=== PATIENT | female | born 1955 | race Caucasian/White ===

== ENCOUNTER 2017-07-12 07:33 | Outpatient (CLI) | payer OTHER ==
[~2017-07-12 07:33] MED LIST: FLOR250 PO; NITR100C7 PO
[2017-07-12 09:35] LABS: BASOPHILS # (AUTO) 0.2 K/uL (0.00-0.22); BASOPHILS % (AUTO) 3.3 % (0.0-2.0); EOSINOPHILS # (AUTO) 0.2 K/uL (0-0.4); EOSINOPHILS % (AUTO) 3.6 % (0.0-4.0); HEMATOCRIT 37.8 % (36-48); HEMOGLOBIN 12.4 g/dL (12.0-16.0); LYMPHOCYTES % (AUTO) 18.7 % (20.5-51.1); MEAN CORPUSCULAR HEMOGLOBIN 27 pg (27-31); MEAN CORPUSCULAR HGB CONC 33 g/dL (33-37); MEAN CORPUSCULAR VOLUME 82 fL (80-94); MONOCYTES # (AUTO) 0.4 K/uL (0.8-1.0); MONOCYTES % (AUTO) 6.4 % (1.7-9.3); NEUTROPHILS # (AUTO) 3.8 K/uL (1.8-7.7); PLATELET COUNT (AUTO) 229 K/uL (140-450); RED CELL DISTRIBUTION WIDTH 13.2 % (11.6-13.7); WHITE BLOOD COUNT (AUTO) 5.6 K/uL (4.8-10.8)
[2017-07-12 10:01] LABS: ALBUMIN 3.4 g/dL (3.4-5.0); CARBON DIOXIDE 31.3 mmol/L (21-32); CHOL/HDL RATIO 4.7 (1-4.5); CREATININE 0.9 mg/dL (0.6-1.3); POTASSIUM 4.3 mmol/L (3.5-5.1); THYROID STIMULATING HORMONE 3.46 uIU/mL (0.34-3.74); TOTAL BILIRUBIN 0.4 mg/dL (0.0-1.0)
== END 2017-07-12 20:25 | disposition home or self-care (01) ==
LOC: MLB 07:33 → EDBD 07:33 → MLB 20:25
PROVIDERS: ATTEND Family Medicine
DX: I10 Essential (primary) hypertension (principal); E78.5 Hyperlipidemia, unspecified
CPT/HCPCS: 36415; 80053; 83036; 84443; 85025

== ENCOUNTER 2019-01-02 15:43 | Outpatient (CLI) | payer OTHER | END 2019-01-02 20:35 | disposition home or self-care (01) | LOC: MRD 15:43 | PROVIDERS: ATTEND Family Medicine | DX: R60.0 Localized edema (principal) | CPT/HCPCS: 93971; Q0092 ==

== ENCOUNTER 2019-01-10 07:05 | Outpatient (CLI) | payer OTHER ==
[2019-01-10 08:14] LABS: ALBUMIN 3.8 g/dL (3.4-5.0); ANION GAP 9.7 (8-16); CARBON DIOXIDE 30.9 mmol/L (21-32); CHOL/HDL RATIO 3.1 (1-4.5); CREATININE 0.9 mg/dL (0.6-1.3); POTASSIUM 3.6 mmol/L (3.5-5.1); THYROID STIMULATING HORMONE 2.78 uIU/mL (0.34-3.74); TOTAL BILIRUBIN 0.5 mg/dL (0.0-1.0)
[2019-01-10 08:32] LABS: BASOPHILS # (AUTO) 0.1 K/uL (0.00-0.22); EOSINOPHILS # (AUTO) 0.2 K/uL (0-0.4); EOSINOPHILS % (AUTO) 3.9 % (0.0-4.0); HEMATOCRIT 38.5 % (36-48); HEMOGLOBIN 12.9 g/dL (12.0-16.0); LYMPHOCYTES # (AUTO) 1.3 K/uL (2.5-16.5); LYMPHOCYTES % (AUTO) 23.6 % (20.5-51.1); MEAN CORPUSCULAR HEMOGLOBIN 29 pg (27-31); MEAN CORPUSCULAR HGB CONC 34 g/dL (33-37); MEAN CORPUSCULAR VOLUME 84.9 fL (80-94); MONOCYTES # (AUTO) 0.4 K/uL (0.8-1.0); MONOCYTES % (AUTO) 7.1 % (1.7-9.3); NEUTROPHILS # (AUTO) 3.6 K/uL (1.8-7.7); NEUTROPHILS % (AUTO) 64.4 % (42.2-75.2); PLATELET COUNT (AUTO) 230 K/uL (140-450); RED BLOOD CELL COUNT(AUTO) 4.53 MIL/uL (4.20-5.40); RED CELL DISTRIBUTION WIDTH 13.5 % (11.6-13.7); WHITE BLOOD COUNT (AUTO) 5.5 K/uL (4.8-10.8)
== END 2019-01-10 20:11 | disposition home or self-care (01) ==
LOC: MLB 07:05
PROVIDERS: ATTEND Family Medicine
DX: E78.5 Hyperlipidemia, unspecified (principal); I10 Essential (primary) hypertension
CPT/HCPCS: 36415; 80053; 82272; 84443; 85025

== ENCOUNTER 2019-04-12 15:39 | Emergency (ER) | payer OTHER ==
[~2019-04-12] VITALS: Ht 160 cm; Wt 89.4 kg
[2019-04-12 15:42] VITALS: BP 114/66
[2019-04-12 16:23] VITALS: BP 114/59
== END 2019-04-12 16:24 | disposition home or self-care (01) ==
LOC: MED 15:39
DX: S60.032A Contusion of left middle finger without damage to nail, initial encounter (principal); I10 Essential (primary) hypertension; J45.909 Unspecified asthma, uncomplicated; Z79.899 Other long term (current) drug therapy; Z79.2 Long term (current) use of antibiotics; Z88.1 Allergy status to other antibiotic agents; W23.0XXA Caught, crushed, jammed, or pinched between moving objects, initial encounter; Y93.89 Activity, other specified; Y92.89 Other specified places as the place of occurrence of the external cause; Y99.8 Other external cause status
CPT/HCPCS: 73140; 99283

== ENCOUNTER 2019-08-15 15:13 | Outpatient (CLI) | payer OTHER ==
[2019-08-15 15:43] LABS: BASOPHILS # (AUTO) 0.1 K/uL (0.00-0.22); BASOPHILS % (AUTO) 1.1 % (0.0-2.0); EOSINOPHILS # (AUTO) 0.2 K/uL (0-0.4); EOSINOPHILS % (AUTO) 3.8 % (0.0-4.0); HEMATOCRIT 37.9 % (36-48); HEMOGLOBIN 12.4 g/dL (12.0-16.0); LYMPHOCYTES # (AUTO) 1.3 K/uL (2.5-16.5); MEAN CORPUSCULAR HEMOGLOBIN 27 pg (27-31); MEAN CORPUSCULAR HGB CONC 33 g/dL (33-37); MEAN CORPUSCULAR VOLUME 83.9 fL (80-94); MONOCYTES # (AUTO) 0.3 K/uL (0.8-1.0); MONOCYTES % (AUTO) 6.5 % (1.7-9.3); NEUTROPHILS # (AUTO) 2.9 K/uL (1.8-7.7); NEUTROPHILS % (AUTO) 61.6 % (42.2-75.2); PLATELET COUNT (AUTO) 232 K/uL (140-450); RED BLOOD CELL COUNT(AUTO) 4.52 MIL/uL (4.20-5.40); RED CELL DISTRIBUTION WIDTH 13.7 % (11.6-13.7); WHITE BLOOD COUNT (AUTO) 4.8 K/uL (4.8-10.8)
[2019-08-15 16:21] LABS: ALBUMIN 3.7 g/dL (3.4-5.0); ANION GAP 12.2 (8-16); CARBON DIOXIDE 28.9 mmol/L (21-32); CREATININE 0.9 mg/dL (0.6-1.3); FREE T4 (FREE THYROXINE) 0.98 ng/dL (0.76-1.46); POTASSIUM 4.1 mmol/L (3.5-5.1); THYROID STIMULATING HORMONE 2.49 uIU/mL (0.34-3.74); TOTAL BILIRUBIN 0.5 mg/dL (0.0-1.0)
[2019-08-16 15:06] LABS: ESTRADIOL SERUM 9.3 pg/mL (.); FOLLICLE STIMULATING HORMONE 90.5 mIU/mL (.)
[2019-08-17 06:19] LABS: T4 (THYROXINE) 9.6 ug/dL (4.5-12.0); TRIIODOTHYRONINE FREE 3.1 pg/mL (2.0-4.4)
== END 2019-08-15 20:21 | disposition home or self-care (01) ==
LOC: MLB 15:13
DX: N39.41 Urge incontinence (principal); N95.1 Menopausal and female climacteric states; N76.0 Acute vaginitis; N81.3 Complete uterovaginal prolapse; N39.3 Stress incontinence (female) (male)
CPT/HCPCS: 36415; 80053; 82306; 82607; 82670; 83001; 84403; 84436; 84439; 84443; 84481; 85025

== ENCOUNTER 2019-11-28 08:42 | Inpatient (IN) | payer OTHER, SELFPAY ==
[~2019-11-28] VITALS: Ht 157.5 cm; Wt 81.6 kg
[2019-11-28 08:48] VITALS: BP 188/110
[2019-11-28] MEDS ORDERED: ALBUTEROL 0.083% 2.5 MG/3 ML NEBU INH ONE (09:10)
[2019-11-28] MEDS ORDERED: IPRATROPIUM 0.02% 0.5 MG/2.5 ML NEBU INH ONE (09:10)
[2019-11-28 09:33] LABS: BASOPHILS # (AUTO) 0.1 K/uL (0.00-0.22); BASOPHILS % (AUTO) 1.4 % (0.0-2.0); EOSINOPHILS # (AUTO) 0.2 K/uL (0-0.4); EOSINOPHILS % (AUTO) 2.9 % (0.0-4.0); HEMATOCRIT 37.8 % (36-48); HEMOGLOBIN 12.7 g/dL (12.0-16.0); LYMPHOCYTES # (AUTO) 1.1 K/uL (2.5-16.5); LYMPHOCYTES % (AUTO) 19.8 % (20.5-51.1); MEAN CORPUSCULAR HEMOGLOBIN 28 pg (27-31); MEAN CORPUSCULAR HGB CONC 34 g/dL (33-37); MEAN CORPUSCULAR VOLUME 83.2 fL (80-94); MONOCYTES # (AUTO) 0.4 K/uL (0.8-1.0); MONOCYTES % (AUTO) 6.3 % (1.7-9.3); NEUTROPHILS # (AUTO) 3.9 K/uL (1.8-7.7); NEUTROPHILS % (AUTO) 69.6 % (42.2-75.2); PLATELET COUNT (AUTO) 222 K/uL (140-450); RED BLOOD CELL COUNT(AUTO) 4.55 MIL/uL (4.20-5.40); RED CELL DISTRIBUTION WIDTH 14.3 % (11.6-13.7); WHITE BLOOD COUNT (AUTO) 5.6 K/uL (4.8-10.8)
[2019-11-28 10:07] LABS: ALBUMIN 3.7 g/dL (3.4-5.0); ANION GAP 13.1 (8-16); CARBON DIOXIDE 27.8 mmol/L (21-32); CREATININE 0.9 mg/dL (0.6-1.3); POTASSIUM 3.9 mmol/L (3.5-5.1); TOTAL BILIRUBIN 0.7 mg/dL (0.0-1.0)
[2019-11-28] MEDS ORDERED: NITROGLYCERIN 0.4 MG TAB SL ONE (10:20)
[2019-11-28] MEDS ORDERED: ASPIRIN 81 MG TAB.CHEW PO ONE (10:20)
[2019-11-28] MEDS ORDERED: VITD400 PO (10:38)
[2019-11-28] MEDS ORDERED: LOSA25TA43 PO (10:38)
[2019-11-28] MEDS ORDERED: PRON INH (10:38)
[2019-11-28] MEDS ORDERED: ATOR20TA PO (10:38)
[2019-11-28] MEDS: NACL 0.9% 1,000 ML IV SCH ×2 (11:06→21:06)
[2019-11-28] MEDS ORDERED: ONDANSETRON 4 MG/2 ML VIAL IM/IVP PRN (11:10)
[2019-11-28] MEDS ORDERED: DOCUSATE SODIUM 100 MG GELCAP PO PRN (11:10)
[2019-11-28] MEDS ORDERED: ACETAMINOPHEN 325 MG TAB PO PRN (11:10)
[2019-11-28] MEDS ORDERED: ALBUTEROL HFA MDI 90 MCG/ACTUATION 8 GM INH PRN (11:10)
[2019-11-28] MEDS ORDERED: HYDR-3298 PO (12:24)
[2019-11-28 12:41] LABS: PROTHROMBIN TIME 9.7 secs (10.8-13.4)
[2019-11-28 12:42] LABS: PHOSPHORUS 3.4 mg/dL (2.5-4.9); THYROID STIMULATING HORMONE 3.03 uIU/mL (0.34-3.74)
[2019-11-28 12:45] VITALS: BP 137/75
[2019-11-28] MEDS ORDERED: AZITHROMYCIN 500 MG in DEXTROSE 5% 250 ML IV SCH (13:00)
[2019-11-28] MEDS ORDERED: NITROGLYCERIN 0.4 MG TAB SL PRN (14:00)
[2019-11-28] MEDS ORDERED: KETOROLAC 30 MG/ML VIAL IVP PRN (14:20)
[2019-11-28 16:00] VITALS: BP 133/84
[2019-11-28 20:00] VITALS: BP 146/75
[2019-11-28] MEDS: METOPROLOL 25 MG TAB PO SCH (22:07)
[2019-11-28] MEDS ORDERED: CRUSHER, PILL MC ONE (22:15)
[2019-11-28] MEDS: LORazepam 0.5 MG TAB PO PRN (22:23)
[2019-11-29] VITALS: BP 136/70
[2019-11-29 04:00] VITALS: BP 123/65
[2019-11-29 06:05] LABS: BASOPHILS # (AUTO) 0.1 K/uL (0.00-0.22); BASOPHILS % (AUTO) 1.2 % (0.0-2.0); EOSINOPHILS # (AUTO) 0.3 K/uL (0-0.4); EOSINOPHILS % (AUTO) 5.8 % (0.0-4.0); HEMATOCRIT 36.7 % (36-48); HEMOGLOBIN 12.3 g/dL (12.0-16.0); LYMPHOCYTES # (AUTO) 1.4 K/uL (2.5-16.5); LYMPHOCYTES % (AUTO) 28.5 % (20.5-51.1); MEAN CORPUSCULAR HEMOGLOBIN 28 pg (27-31); MEAN CORPUSCULAR HGB CONC 34 g/dL (33-37); MEAN CORPUSCULAR VOLUME 83.6 fL (80-94); MONOCYTES # (AUTO) 0.5 K/uL (0.8-1.0); MONOCYTES % (AUTO) 11.3 % (1.7-9.3); NEUTROPHILS # (AUTO) 2.5 K/uL (1.8-7.7); NEUTROPHILS % (AUTO) 53.2 % (42.2-75.2); PLATELET COUNT (AUTO) 204 K/uL (140-450); RED BLOOD CELL COUNT(AUTO) 4.38 MIL/uL (4.20-5.40); RED CELL DISTRIBUTION WIDTH 14.3 % (11.6-13.7); WHITE BLOOD COUNT (AUTO) 4.7 K/uL (4.8-10.8)
[2019-11-29 06:18] LABS: CHOL/HDL RATIO 3.6 (1-4.5)
[2019-11-29 06:30] LABS: ALBUMIN 3.1 g/dL (3.4-5.0); ANION GAP 11.9 (8-16); CARBON DIOXIDE 27.1 mmol/L (21-32); CREATININE 0.8 mg/dL (0.6-1.3); PHOSPHORUS 3.5 mg/dL (2.5-4.9); TOTAL BILIRUBIN 0.7 mg/dL (0.0-1.0)
[2019-11-29] MEDS: NACL 0.9% 1,000 ML IV SCH ×2 (07:06→17:06)
[2019-11-29 08:00] VITALS: BP 137/77
[2019-11-29] MEDS: LACTOBACILLUS RHAMNOSUS GG 1 EACH CAP PO SCH (08:17)
[2019-11-29] MEDS: ASCORBIC ACID 500 MG TAB PO SCH (08:18)
[2019-11-29] MEDS: ZINC SULF 220 MG CAP PO SCH (08:18)
[2019-11-29] MEDS: ATORVASTATIN 20 MG TAB PO SCH (08:20)
[2019-11-29] MEDS: LORATADINE 10 MG TAB PO SCH (08:21)
[2019-11-29] MEDS: METOPROLOL 25 MG TAB PO SCH ×2 (08:21→21:08)
[2019-11-29] MEDS: LOSARTAN 50 MG TAB PO SCH (08:22)
[2019-11-29] MEDS: MONTELUKAST SODIUM 10 MG TAB PO SCH (08:25)
[2019-11-29] MEDS: FAMOTIDINE 20 MG TAB PO SCH (08:25)
[2019-11-29] MEDS: ASPIRIN 81 MG TAB.CHEW PO SCH (08:26)
[2019-11-29] MEDS: ENOXAPARIN 40 MG/0.4 ML SYR SUBQ SCH (08:47)
[2019-11-29] MEDS ORDERED: HYDROCHLOROTHIAZIDE 25 MG TAB PO SCH ×2 (09:00→13:00)
[2019-11-29] MEDS ORDERED: ERGOCALCIFEROL 50,000 IU SGL PO SCH (09:00)
[2019-11-29 12:00] VITALS: BP 175/81
[2019-11-29] MEDS: LORazepam 0.5 MG TAB PO PRN (14:45)
[2019-11-29 16:00] VITALS: BP 150/77
[2019-11-29 17:52] LABS: APPEARANCE,URINE CLEAR (CLEAR); BILIRUBIN,URINE NEGATIVE (NEGATIVE); BLOOD, URINE NEGATIVE (NEGATIVE); COLOR,URINE YELLOW (YELLOW); LEUKOCYTE ESTERASE ,URINE 2+ (NEGATIVE); NITRITE, URINE NEGATIVE (NEGATIVE); PH,URINE 6.5 (5.0-9.0); UGLUCOSE NEGATIVE (NEGATIVE)
[2019-11-29 18:01] LABS: RBC,URINE 0-5 /HPF (0-5)
[2019-11-29 20:00] VITALS: BP 149/77
[2019-11-30] VITALS: BP 138/63
[2019-11-30] MEDS: NACL 0.9% 1,000 ML IV SCH ×2 (01:19→13:12)
[2019-11-30 04:00] VITALS: BP 155/49
[2019-11-30] MEDS: LORazepam 0.5 MG TAB PO PRN ×2 (05:24→16:43)
[2019-11-30 05:55] LABS: BASOPHILS # (AUTO) 0.1 K/uL (0.00-0.22); BASOPHILS % (AUTO) 1.5 % (0.0-2.0); EOSINOPHILS # (AUTO) 0.3 K/uL (0-0.4); EOSINOPHILS % (AUTO) 5.1 % (0.0-4.0); HEMATOCRIT 36.7 % (36-48); HEMOGLOBIN 12.3 g/dL (12.0-16.0); LYMPHOCYTES # (AUTO) 1.6 K/uL (2.5-16.5); LYMPHOCYTES % (AUTO) 30.2 % (20.5-51.1); MEAN CORPUSCULAR HEMOGLOBIN 28 pg (27-31); MEAN CORPUSCULAR HGB CONC 33 g/dL (33-37); MEAN CORPUSCULAR VOLUME 83.5 fL (80-94); MONOCYTES # (AUTO) 0.4 K/uL (0.8-1.0); MONOCYTES % (AUTO) 7.7 % (1.7-9.3); NEUTROPHILS % (AUTO) 55.5 % (42.2-75.2); PLATELET COUNT (AUTO) 204 K/uL (140-450); RED CELL DISTRIBUTION WIDTH 14.2 % (11.6-13.7); WHITE BLOOD COUNT (AUTO) 5.4 K/uL (4.8-10.8)
[2019-11-30 06:56] LABS: ALBUMIN 3.2 g/dL (3.4-5.0); ANION GAP 12.3 (8-16); CARBON DIOXIDE 26.7 mmol/L (21-32); CREATININE 0.9 mg/dL (0.6-1.3); MAGNESIUM 1.8 mg/dL (1.8-2.4); PHOSPHORUS 3.3 mg/dL (2.5-4.9); TOTAL BILIRUBIN 0.5 mg/dL (0.0-1.0)
[2019-11-30 08:00] VITALS: BP 152/83
[2019-11-30] MEDS: ENOXAPARIN 40 MG/0.4 ML SYR SUBQ SCH (08:36)
[2019-11-30] MEDS: LACTOBACILLUS RHAMNOSUS GG 1 EACH CAP PO SCH (08:36)
[2019-11-30] MEDS: ASPIRIN 81 MG TAB.CHEW PO SCH (08:37)
[2019-11-30] MEDS: ASCORBIC ACID 500 MG TAB PO SCH (08:38)
[2019-11-30] MEDS: ZINC SULF 220 MG CAP PO SCH (08:38)
[2019-11-30] MEDS: MONTELUKAST SODIUM 10 MG TAB PO SCH (08:38)
[2019-11-30] MEDS: LOSARTAN 50 MG TAB PO SCH (08:38)
[2019-11-30] MEDS: LORATADINE 10 MG TAB PO SCH (08:39)
[2019-11-30] MEDS: ATORVASTATIN 20 MG TAB PO SCH (08:39)
[2019-11-30] MEDS: FAMOTIDINE 20 MG TAB PO SCH (08:40)
[2019-11-30] MEDS: METOPROLOL 25 MG TAB PO SCH (08:45)
[2019-11-30] MEDS ORDERED: LOSA50TA1 PO ×2 (08:52→11:54)
[2019-11-30] MEDS ORDERED: ORE25 PO ×2 (08:52→11:54)
[2019-11-30] MEDS ORDERED: LORA-476 PO (08:54)
[2019-11-30] MEDS ORDERED: HYDROCHLOROTHIAZIDE 25 MG TAB PO SCH (09:00)
[2019-11-30 12:00] VITALS: BP 152/69
[2019-11-30 12:07] VITALS: BP 152/69
[2019-11-30 16:00] VITALS: BP 147/81
== END 2019-11-30 16:50 | disposition home or self-care (01) | DRG 202 ==
LOC: EEVIPCON 08:42 → MED 08:42 → MMU 11:11
PROVIDERS: ADMIT Family Medicine; ATTEND Family Medicine
DX: J45.901 Unspecified asthma with (acute) exacerbation (principal); E44.1 Mild protein-calorie malnutrition; M94.0 Chondrocostal junction syndrome [Tietze]; Z88.8 Allergy status to other drugs, medicaments and biological substances; Z20.828 Contact with and (suspected) exposure to other viral communicable diseases; I10 Essential (primary) hypertension; E78.5 Hyperlipidemia, unspecified; F41.9 Anxiety disorder, unspecified; Z88.5 Allergy status to narcotic agent; Z90.710 Acquired absence of both cervix and uterus; Z68.32 Body mass index [BMI] 32.0-32.9, adult
CPT/HCPCS: 36415; 36600; 71045; 80053; 81001; 82728; 82803; 83036; 83615; 83735; 83880; 84100; 84443; 84484; 85025; 85379; 85610; 85651; 85730; 86140; 87081; 87086; 93005; 94640; 94664; 99285; J0456; J0696; J1650; J1885; J7030; J7060; J7613; J7644; Q0092

== ENCOUNTER 2020-02-16 20:10 | Emergency (ER) | payer OTHER, SELFPAY ==
[~2020-02-16] VITALS: Ht 160 cm; Wt 90.7 kg
[~2020-02-16 20:10] MED LIST changes: +ATOR20TA PO; -FLOR250 PO; +LORA-476 PO; +LOSA50TA1 PO; -NITR100C7 PO; +ORE25 PO; +PRON INH; +VITD400 PO
[2020-02-16 20:30] VITALS: BP 103/62
--- NOTE | 2020-02-16 20:30 | NUR ---
PT IN OF TENT WAITING TO BE SEEN BY ERMD. VSS.
--- NOTE | 2020-02-16 20:31 | NUR ---
PT 64 Y/O FEMALE BIB SELF FOR C/O SOB AND SUBJECTIVE FEVER X 4 DAYS. 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 PT BREATHING EVEN AND UNLABORED. O2SAT @ 97% RA. LUNG SOUNDS ARE CLEAR A/P BILAT. NO CURRENT SOB NOTED. PT DENIES COUGH, N/V/D. SKIN IS WARM AND DRY TO TOUCH. CURRENT TEMP: 97.4. PT STATES GENERALIZED BODY ACHES 3/10. STATES BODY ACHES COME AND GO. MEDHX: HTN, ANXIETY ALLERGIES: CODEINE, ERYTHROMYCIN.
--- NOTE | 2020-02-16 20:31 | NUR ---
OTHER MED HX: ASTHMA
--- NOTE | 2020-02-16 21:10 | NUR ---
COVID SWAB COLLECTED. ERMD ASSESSING PT.
[2020-02-16 21:40] VITALS: BP 103/62
--- NOTE | 2020-02-16 21:50 | NUR ---
COVID SWAB SENT TO LAB.
== END 2020-02-16 21:40 | disposition home or self-care (01) ==
LOC: MED 20:10
DX: R50.9 Fever, unspecified (principal); Z20.828 Contact with and (suspected) exposure to other viral communicable diseases; R51 Headache; R07.89 Other chest pain; J45.909 Unspecified asthma, uncomplicated; I10 Essential (primary) hypertension; Z79.899 Other long term (current) drug therapy; Z88.1 Allergy status to other antibiotic agents; Z88.5 Allergy status to narcotic agent; Z90.710 Acquired absence of both cervix and uterus
CPT/HCPCS: 99283; U0003

== ENCOUNTER 2020-03-11 14:53 | Emergency (ER) | payer SELFPAY, OTHER ==
[~2020-03-11] VITALS: Ht 160 cm; Wt 89.8 kg
[2020-03-11 15:10] VITALS: BP 159/105
--- NOTE | 2020-03-11 15:19 | NUR ---
C/O HEADACHE X YESTERDAY AND LEFT ARM PAIN X 2 DAYS. PT HAD COVID TESTED + 02/16/20. MED HX: ASTHMA, HTN, HLD, HYSTERECTOMY
--- NOTE | 2020-03-11 16:05 | NUR ---
compliance technician at bedside.
--- NOTE | 2020-03-11 16:09 | NUR ---
covid-19 swab collected and handed to lab
--- NOTE | 2020-03-11 16:10 | NUR ---
cxr completed at bedside
[2020-03-11] MEDS ORDERED: BECL10.62 INH (16:17)
[2020-03-11] MEDS ORDERED: ASPI-1822 PO (16:17)
[2020-03-11] MEDS ORDERED: NITR0.4T2 SL (16:17)
[2020-03-11] MEDS ORDERED: HYDR1TAB28 PO (16:17)
[2020-03-11] MEDS ORDERED: AMLO5TAB PO (16:17)
[2020-03-11 16:21] LABS: BASOPHILS % (AUTO) 0.5 % (0.0-2.0); EOSINOPHILS # (AUTO) 0.3 K/uL (0-0.4); EOSINOPHILS % (AUTO) 4.6 % (0.0-4.0); HEMATOCRIT 35.6 % (36-48); LYMPHOCYTES # (AUTO) 1.3 K/uL (2.5-16.5); LYMPHOCYTES % (AUTO) 21.1 % (20.5-51.1); MEAN CORPUSCULAR HEMOGLOBIN 28 pg (27-31); MEAN CORPUSCULAR HGB CONC 34 g/dL (33-37); MEAN CORPUSCULAR VOLUME 83.5 fL (80-94); MONOCYTES # (AUTO) 0.6 K/uL (0.8-1.0); NEUTROPHILS % (AUTO) 64.8 % (42.2-75.2); PLATELET COUNT (AUTO) 262 K/uL (140-450); RED BLOOD CELL COUNT(AUTO) 4.26 MIL/uL (4.20-5.40); RED CELL DISTRIBUTION WIDTH 13.6 % (11.6-13.7); WHITE BLOOD COUNT (AUTO) 6.2 K/uL (4.8-10.8)
[2020-03-11] MEDS ORDERED: ACETAMINOPHEN 325 MG TAB PO ONE (16:30)
[2020-03-11 16:46] LABS: ALBUMIN 3.6 g/dL (3.4-5.0); ANION GAP 15.4 (8-16); CARBON DIOXIDE 26.3 mmol/L (21-32); POTASSIUM 3.7 mmol/L (3.5-5.1); TOTAL BILIRUBIN 0.3 mg/dL (0.0-1.0)
--- NOTE | 2020-03-11 19:15 | NUR ---
RECEIVED REPROT FORM LILI RENTERIA. WILL CONT CARE AT THIS TIME.
--- NOTE | 2020-03-11 19:45 | NUR ---
RECOLLECTED COVID SWAB AND SENT TO LAB AT THIS TIME.
[2020-03-11 19:53] VITALS: BP 143/72
--- NOTE | 2020-03-11 19:53 | NUR ---
Patient discharged with v/s stable. Written and verbal after care instructions given and explained. Patient verbalized understanding. Ambulatory with steady gait. All questions addressed prior to discharge. Advised to follow up with PMD.
== END 2020-03-11 19:53 | disposition home or self-care (01) ==
LOC: MED 14:53
DX: R51 Headache (principal); R41.3 Other amnesia; R42 Dizziness and giddiness; R05 Cough; M79.10 Myalgia, unspecified site; J45.909 Unspecified asthma, uncomplicated; I10 Essential (primary) hypertension; Z79.82 Long term (current) use of aspirin; Z79.899 Other long term (current) drug therapy; Z88.5 Allergy status to narcotic agent; Z88.1 Allergy status to other antibiotic agents
CPT/HCPCS: 70450; 71045; 80053; 85025; 93005; 99285; Q0092; U0003